=== PATIENT | female | born 1960 ===

== ENCOUNTER → 2016-06-21 | Outpatient (CLI) | payer BC ==
[2016-06-21 13:13] LABS: BASO % 0.2 %; BASO ABS # 0.01 K/uL (0-0.2); COMPLETE YES; HEMATOCRIT 38.7 % (37-47); IG% 0.2 %; LYMPH % 35.4 %; LYMPH ABS # 1.76 K/uL (1.2-3.4); MEAN CELL VOLUME 91.5 fL (80-100); MEAN CORPUSCULAR HGB CONC 33.9 g/dl (32-36); MEAN PLATELET VOLUME 9.7 fL (7.4-10.4); MONO % 7.8 %; NEUT % 55.4 %; PLATELET COUNT 299 K/uL (130-400); RED BLOOD COUNT 4.23 M/uL (4.2-5.4); WHITE BLOOD COUNT 4.97 K/uL (4.8-10.8)
[2016-06-21 16:34] LABS: ALT/SGPT 17 U/L (12-78); AST/SGOT 11 U/L (15-37); BLOOD UREA NITROGEN 11 mg/dl (7-18); BUN/CREATININE RATIO 12.9 (10-20); CALCIUM 9.3 mg/dl (8.5-10.1); CARBON DIOXIDE 28 mmol/L (21-32); CHLORIDE 104 mmol/L (98-107); CREATININE 0.86 mg/dl (0.60-1.20); GLUCOSE 82 mg/dl (70-99); POTASSIUM 4.1 mmol/L (3.5-5.1); SODIUM 141 mmol/L (136-145)
[2016-06-21 16:46] LABS: ALB/GLOB RATIO 1.3 (0.9-2); ALKALINE PHOSPHATASE 71 U/L (45-117); CHOLESTEROL 210 mg/dl (0-200); CHOLESTEROL/HDL RATIO 2.6; HDL CHOLESTEROL 81 mg/dl; LDL CHOLESTEROL CALCULATED 115 mg/dl; TRIGLYCERIDES 71 mg/dl (0-150); VERY LOW DENSITY LIPOPROT CALC 14 mg/dl
== END | disposition home or self-care (01) ==
LOC: C.LABMFLN 09:42
PROVIDERS: ATTEND Family Medicine
DX: R53.83 Other fatigue (principal); Z13.220 Encounter for screening for lipoid disorders

== ENCOUNTER → 2016-06-21 | Outpatient (CLI) | payer BC | END | disposition home or self-care (01) | LOC: C.PAPS 16:02 | PROVIDERS: ATTEND Family Medicine | DX: Z12.4 Encounter for screening for malignant neoplasm of cervix (principal) ==